=== PATIENT | male | born 1980 | race Two or more races ===

== ENCOUNTER 2022-08-07 23:07 | Inpatient (IN) | payer MEDICAID, OTHER ==
[~2022-08-07] VITALS: Ht 160 cm; Wt 86.2 kg
--- NOTE | 2022-08-07 23:20 | NUR ---
LELO 81 FROM HOME FOR C/O ABD PAIN MORE ON UPPER ABDOMINAL QUADRANT SCALE OF 10/10. N/V X 1 HOUR. PATIENT IS MOANING AND CRYING OF PAIN. PLACED COMFORTABLY IN BED. VITALS CHECKED.
--- NOTE | 2022-08-07 23:20 | NUR ---
BLOOD DRAWN AND SENT TO LAB
[2022-08-07] MEDS ORDERED: MORPHINE SULFATE INJ 2 MG/ML DISP.SYRIN IV ONE (23:30)
[2022-08-07] MEDS ORDERED: IV NS 0.9% 1,000 ML BAG IV ONE (23:30)
[2022-08-07] MEDS ORDERED: ONDANSETRON HCL/PF 4 MG/2 ML VIAL IVP ONE (23:30)
[2022-08-07] MEDS ORDERED: MORPHINE SULFATE INJ 4 MG/ML DISP.SYRIN ONE (23:38)
[2022-08-07] MEDS ORDERED: ONDANSETRON HCL/PF 4 MG/2 ML VIAL ONE (23:38)
--- NOTE | 2022-08-08 00:02 | NUR ---
PT TO CT VIA OLLIE
--- NOTE | 2022-08-08 00:22 | NUR ---
CAME BACK FROM CT DEPT
--- NOTE | 2022-08-08 00:32 | NUR ---
[facility] [phone]. UPDATE GIVEN. TO CALL ONCE RESULTS ARE OUT
--- NOTE | 2022-08-08 00:35 | NUR ---
URINE SPECIMEN SENT TO LAB
[2022-08-08] MEDS ORDERED: KETOROLAC TROMETHAMINE INJ 30 MG/ML VIAL ONE ×2 (00:59→05:00)
[2022-08-08] MEDS ORDERED: KETOROLAC TROMETHAMINE INJ 30 MG/ML VIAL IV ONE ×2 (01:00→05:00)
[2022-08-08 01:33] LABS: BILIRUBIN,URINE NEGATIVE (NEGATIVE); COLOR,URINE OTHER (YELLOW); LEUKOCYTE ESTERASE ,URINE NEGATIVE (NEGATIVE); NITRITE, URINE NEGATIVE (NEGATIVE); PROTEIN,URINE NEGATIVE (NEGATIVE); UGLUCOSE NEGATIVE (NEGATIVE); UROBILINOGEN,URINE 0.2 EU/dL (0.2)
[2022-08-08 01:36] LABS: BASOPHILS # (AUTO) 0.1 K/uL (0.0-0.2); BASOPHILS % (AUTO) 0.4 % (0.0-2.0); EOSINOPHILS % (AUTO) 1.2 % (0.0-6.0); HEMATOCRIT 53 % (39-51); HEMOGLOBIN 17.7 g/dL (13.5-17.5); LYMPHOCYTES # (AUTO) 3.3 K/uL (0.8-4.8); LYMPHOCYTES % (AUTO) 16.5 % (20.0-44.0); MEAN CORPUSCULAR HGB CONC 34 g/dl (31.0-36.0); MEAN CORPUSCULAR VOLUME 86 fL (80-96); MONOCYTES # (AUTO) 1.4 K/uL (0.1-1.30); NEUTROPHILS # (AUTO) 14.8 K/uL (1.8-8.9); NEUTROPHILS % (AUTO) 74.9 % (43.0-81.0); PLATELET COUNT (AUTO) 133 K/uL (150-450); WHITE BLOOD COUNT (AUTO) 19.8 K/uL (4.3-11.0)
[2022-08-08 01:55] LABS: CALCIUM, SERUM 9.2 mg/dL (8.5-10.1); CARBON DIOXIDE 25 mmol/L (21-32); CHLORIDE 105 mmol/L (98-107); CREATININE 0.8 mg/dL (0.6-1.3); GLUCOSE 155 mg/dL (74-106); POTASSIUM 3.7 mmol/L (3.5-5.1); SODIUM SERUM 139 mmol/L (136-145); UREA NITROGEN, BLOOD 15 mg/dL (7-18)
[2022-08-08 02:09] LABS: ALANINE AMINOTRANSFERASE 36 U/L (12-78); ALKALINE PHOSPHATASE 64 U/L (46-116); ASPARTATE AMINOTRANSFERASE 26 U/L (15-37); BILIRUBIN,TOTAL 0.5 mg/dL (0.2-1.0)
[2022-08-08] MEDS ORDERED: PIPERACILLIN /TAZOBACTAM 3.375 G in IV D5W 50 ML IV ONE (02:30)
[2022-08-08 02:33] LABS: BILIRUBIN,DIRECT 0.1 mg/dL (0.0-0.2); LIPASE 8703 U/L (73-393)
--- NOTE | 2022-08-08 02:37 | NUR ---
COVID SWAB COLLECTED AND SENT TO LAB.
--- NOTE | 2022-08-08 02:47 | NUR ---
updates given to
[2022-08-08] MEDS ORDERED: PIPERACILLIN /TAZOBACTAM 3.375 G VIAL IV ONE (02:55)
[2022-08-08] MEDS ORDERED: MORPHINE SULFATE INJ 4 MG/ML DISP.SYRIN ONE ×2 (03:08→05:03)
[2022-08-08] MEDS ORDERED: MORPHINE SULFATE INJ 2 MG/ML DISP.SYRIN IV ONE ×2 (03:30→05:30)
--- NOTE | 2022-08-08 03:32 | NUR ---
REPORT GIVEN TO MARCUS RUTHERFORD
--- NOTE | 2022-08-08 03:51 | NUR ---
MOSES ZUÑIGA AT BEDSIDE
--- NOTE | 2022-08-08 05:04 | NUR ---
SPOKE TO MARCUS MUNGUIA, NO BEDS AT NADA OR [facility] UNTIL [phone]. THEY WILL CALL US BACK LATER FOR UPDATE.
[2022-08-08] MEDS ORDERED: HYDROMORPHONE 1 MG/1 ML DISP.SYRIN ONE ×3 (06:30→10:39)
[2022-08-08] MEDS ORDERED: HYDROMORPHONE 1 MG/1 ML DISP.SYRIN IV ONE ×3 (06:30→11:00)
[2022-08-08] MEDS ORDERED: IV NS 0.9% 1,000 ML IV ONE (06:30)
--- NOTE | 2022-08-08 07:15 | NUR ---
REPORT GIVEN TO STEFANIA RIZO
--- NOTE | 2022-08-08 07:40 | NUR ---
PT RESTING COMFORTABLY IN BED, ALL NEEDS MET AT THIS TIME.
--- NOTE | 2022-08-08 08:05 | NUR ---
ASK FOR CM TO CALL US BACK.
--- NOTE | 2022-08-08 08:27 | NUR ---
DR. RICE SPEAKING WITH DR. SAEZ.
--- NOTE | 2022-08-08 11:32 | NUR ---
BED GIVEN 315-1
--- NOTE | 2022-08-08 11:52 | NUR ---
report given to jc hernandez.
[2022-08-08] MEDS ORDERED: ONDANSETRON HCL/PF 4 MG/2 ML VIAL IV PRN (12:00)
[2022-08-08] MEDS ORDERED: ZOLPIDEM TARTRATE 5 MG TABLET PO PRN (12:00)
[2022-08-08] MEDS ORDERED: ACETAMINOPHEN 650 MG/20.3 ML UDC NG PRN (12:00)
--- NOTE | 2022-08-08 13:00 | NUR ---
RN ADMITTING NOTES RECEIVED PATIENT VIA [facility]IE A/Celine, ACCOMPANIED BY TWO ER STAFF, ON ROOM AIR NO S/S OF RESPIRATORY DISTRESS. IV ACCESS LAC #18G INTACT AND PATENT. ORIENTED TO UNIT AND STAFF. REFUSED FULL SKIN ASSESSMENT. SAFETY MEASURES IN PLACE: BED LOCKED AND IN LOWEST POSITION, HOB ELEVATED, CALL LIGHT WITHIN REACH, SIDE RAILS UPx2. WILL CONTINUE TO MONITOR.
[2022-08-08] MEDS ORDERED: AMLO1CAP PO (13:21)
[2022-08-08 13:41] VITALS: BP 175/113
[2022-08-08] MEDS: HYDROMORPHONE 1 MG/1 ML DISP.SYRIN IV PRN ×2 (13:53→17:33)
[2022-08-08 15:20] VITALS: BP 178/127
[2022-08-08] MEDS: CLONIDINE HCL 0.1 MG TABLET PO PRN (17:24)
[2022-08-08] MEDS: PIPERACILLIN /TAZOBACTAM 3.375 G in IV D5W 50 ML IV SCH (17:25)
[2022-08-08] MEDS: IV D5/ 0.9% NACL 1,000 ML IV PRN (17:25)
[2022-08-08] MEDS: ENOXAPARIN SODIUM 40 MG/0.4 ML DISP.SYRIN SQ SCH (17:26)
--- NOTE | 2022-08-08 18:48 | NUR ---
RN CLOSING NOTES PATIENT A/Ox4, ON ROOM AIR NO S/S OF RESPIRATORY DISTRESS. PATIENT'S AT BEDSIDE. IV ACCESS LAC #18G INTACT AND RH G. 20 SL. CARRIED OUT ALL NEW ORDERS, ALL MEDS GIVEN, PAIN MEDS GIVEN, PRN CLONIDINE ADMINISTERED FOR THE HIGH BLOOD PRESSURE . KEPT PATIENT CLEAN AND COMFORTABLE. SAFETY MEASURES IN PLACE: BED LOCKED AND IN LOWEST POSITION, HOB ELEVATED, CALL LIGHT WITHIN REACH, SIDE RAILS UPx2. WILL ENDORSED TO NIGHT NOD FOR SARAH.
--- NOTE | 2022-08-08 19:25 | NUR ---
RN opening notes Received Pt from morning nurse. Pt is resting in bed comfortably accompanied by Pt's . Pt is alert and orientedX4. On room air. No SOB. No S/S of distress noted. IV sites R hand# 20 is clean, intact and infusing well D5 ns@ 200 ml/hr. LAC# 18 is clean, intact and SL. safety precautions is maintained. Bed at low position, brakes locked, siderails upX2, hob elevated, bed alarm is on and call light is within reach. will continue to monitor.
[2022-08-08] MEDS: KETOROLAC TROMETHAMINE INJ 30 MG/ML VIAL IV PRN (19:56)
[2022-08-08 20:00] VITALS: BP 161/124
--- NOTE | 2022-08-08 20:04 | NUR ---
RN notes Pt is complaining of abd pain and requesting pain med. administered toradol/INJ as ordered for pain. Safety precautions is maintained. Called Pharmacy regarding toradol INJ. Pharmacist ordered to give IM injection. Order carried out.
--- NOTE | 2022-08-08 21:42 | NUR ---
RN notes Informed and notify Dr. Mann regarding Pt's BP at 1999 was 187/120. at 2099 was 161/124. No new orders received. will continue to monitor.
[2022-08-08 22:49] VITALS: BP 153/78
--- NOTE | 2022-08-08 22:50 | NUR ---
RN notes Pt's BP 153/115. no S/S of distress noted. will continue to monitor.
[2022-08-08 22:51] VITALS: BP 153/115
[2022-08-09] MEDS: PIPERACILLIN /TAZOBACTAM 3.375 G in IV D5W 50 ML IV SCH ×4 (00:01→17:51)
[2022-08-09] MEDS: IV D5/ 0.9% NACL 1,000 ML IV PRN ×3 (00:02→17:51)
[2022-08-09] MEDS: HYDROMORPHONE 1 MG/1 ML DISP.SYRIN IV PRN (00:28)
--- NOTE | 2022-08-09 00:35 | NUR ---
RN notes Pt is complaining of abdominal pain 10/10 on pain scale. Administered dilaudid/iv as ordered for pain. safety precautions is maintained. will continue to monitor.
[2022-08-09] MEDS: KETOROLAC TROMETHAMINE INJ 30 MG/ML VIAL IV PRN ×2 (05:23→15:59)
--- NOTE | 2022-08-09 06:43 | NUR ---
RN closing notes Pt is resting in bed comfortably accompanied by Pt's at the bedside. Pt alert and orientedX1-2. on room air. no SOB. No S/S of distress noted. Pt is [place] and able to make needs known. IV site at L hand# 20 is clean, intact and infusing well NS@ 75 ml/hr. IV site at RFA# 22 is clean, intact and SL. haywood cath is inplaced and draining clear yellow urine . R leg immobilizer and dressing is clean, intact and dry. L leg wound care provided as ordered. safety precautions is maintained. Bed at low position, brakes locked, side rails upX3, hob elevated, bed alarm is on and call light is within reach. Will endorse to am nurse for SARAH. Addendum: 08/09/22 at 0645 by JALYN SHEIKH RN Wrong Pt. ignore the message.
--- NOTE | 2022-08-09 06:44 | NUR ---
RN closing notes Pt is resting in bed comfortably. Pt is alert and orientedX4. On room air. No SOB. No S/S of distress noted. NPO. IV sites R hand# 20 is clean, intact and infusing well D5 ns@ 200 ml/hr. LAC# 18 is clean, intact and SL. Routine meds were given as ordered including pain management. Kept Pt clean, dry and comfortbale. All needs met and attended. safety precautions is maintained. Bed at low position, brakes locked, siderails upX2, hob elevated, bed alarm is on and call light is within reach. will endorse to am nurse for SARAH.
[2022-08-09 06:47] LABS: BASOPHILS % (AUTO) 0.1 % (0.0-2.0); EOSINOPHILS % (AUTO) 0.1 % (0.0-6.0); HEMATOCRIT 47 % (39-51); HEMOGLOBIN 15.8 g/dL (13.5-17.5); LYMPHOCYTES % (AUTO) 5.9 % (20.0-44.0); MEAN CORPUSCULAR HGB CONC 34 g/dl (31.0-36.0); MEAN CORPUSCULAR VOLUME 86 fL (80-96); MONOCYTES # (AUTO) 1.3 K/uL (0.1-1.30); NEUTROPHILS # (AUTO) 14.3 K/uL (1.8-8.9); NEUTROPHILS % (AUTO) 85.9 % (43.0-81.0); PLATELET COUNT (AUTO) 98 K/uL (150-450); RED BLOOD CELL COUNT(AUTO) 5.42 MIL/uL (4.5-6.0); WHITE BLOOD COUNT (AUTO) 16.6 K/uL (4.3-11.0)
[2022-08-09 07:00] VITALS: BP 164/108
[2022-08-09 07:20] LABS: ALBUMIN 3.2 g/dL (3.4-5.0); BILIRUBIN,TOTAL 1.5 mg/dL (0.2-1.0); CALCIUM, SERUM 8.2 mg/dL (8.5-10.1); CREATININE 0.9 mg/dL (0.6-1.3); POTASSIUM 3.4 mmol/L (3.5-5.1)
--- NOTE | 2022-08-09 07:45 | NUR ---
RN OPENING NOTES RECEIVED PATIENT AWAKE , A/Ox4 , ON ROOM AIR NO SOB OR DISTRESS NOTED . IV ACCESS LAC #18G INTACT AND PATENT AND RIGHT HAND #20 WITH D5 1/2 NS @200 ML /HOUR . NO C/O OF PAIN AND DISCOMFORT . AMBULATORY WITH BRP . SAFETY MEASURES IN PLACE: BED LOCKED AND IN LOWEST POSITION, HOB ELEVATED, CALL LIGHT WITHIN REACH, SIDE RAILS UPx2. WILL CONTINUE TO MONITOR.
[2022-08-09] MEDS ORDERED: POTASSIUM CHLORIDE 20 MEQ TAB.PRT.SR PO ONE (09:00)
[2022-08-09] MEDS: POTASSIUM CL. PREMIX PERIPHER. 50 ML IV SCH ×2 (09:36→11:07)
[2022-08-09] MEDS ORDERED: POTASSIUM CHLORIDE 10 MEQ/50 ML PREMIXED IVPB FOR PERIPHERAL LINE IV ONE (10:00)
--- NOTE | 2022-08-09 13:00 | NUR ---
RN NOTES PATIENT REFUSED THE TORADOL MEDS RIGHT NOW
[2022-08-09] MEDS: ENOXAPARIN SODIUM 40 MG/0.4 ML DISP.SYRIN SQ SCH (14:01)
--- NOTE | 2022-08-09 15:30 | NUR ---
RN NOTES MEDS TORADOL WAS WASTED
[2022-08-09 15:42] LABS: LYMPHOCYTES % (MANUAL) 5 % (16-48); MONOCYTES % (MANUAL) 10 % (0-11.0); NEUTROPHILS % (MANUAL) 85 (42-76)
[2022-08-09] MEDS: CLONIDINE HCL 0.1 MG TABLET PO PRN ×2 (15:48→21:57)
[2022-08-09 16:00] VITALS: BP 188/104
--- NOTE | 2022-08-09 18:44 | NUR ---
RN OPENING NOTES RECEIVED PATIENT AWAKE , A/Ox4 , ON ROOM AIR NO SOB OR DISTRESS NOTED . IV ACCESS LAC #18G INTACT AND PATENT AND RIGHT HAND #20 WITH D5 NS @200 ML /HOUR . C/O OF PAIN AND DISCOMFORT AND TORADOL GIVEN ORDERED AND WITH HELP . AMBULATORY WITH BRP . ALL DUE MEDS GIVEN ORDERED , NPO EXCEPT MEDS WITH SIPS OF WATER ORDERED , NOTED WITH HIGH BP AND CLONIDINE GIVEN ORDERED , SAFETY MEASURES IN PLACE: BED LOCKED AND IN LOWEST POSITION, HOB ELEVATED, CALL LIGHT WITHIN REACH, SIDE RAILS UPx2. ENDORSED TO NEXT SHIFT Addendum: 08/10/22 at 0833 by MARIANELA HERBERT RN DISREGARD THIS NOTES
[2022-08-09 20:00] VITALS: BP 167/96
[2022-08-09 21:57] VITALS: BP 167/107
--- NOTE | 2022-08-09 22:04 | NUR ---
ABDOMEN PAIN Patient in bed, elevated BP 167/107, reports abdomen pain, denies N/V. No headache, no c/o dizziness. Given Clonidine. IV Toradol. Will cont to monitor patient. Fall precaution maintained.
[2022-08-10] MEDS: PIPERACILLIN /TAZOBACTAM 3.375 G in IV D5W 50 ML IV SCH ×3 (00:05→12:45)
[2022-08-10] MEDS: IV D5/ 0.9% NACL 1,000 ML IV PRN ×2 (00:36→06:53)
[2022-08-10] MEDS: KETOROLAC TROMETHAMINE INJ 30 MG/ML VIAL IV PRN (05:38)
--- NOTE | 2022-08-10 06:25 | NUR ---
END OF SHIFT REPORT Patient in bed, Alert Oriented x4. Oxygen sat high 90's in RA. NPO except medication. IVF continuous, on IV abx. Afebrile during the night. Pain controlled by IV Toradol. Denies N/V. Ambulated to the bathroom, voided urine, no BM during the night. Plan for continue abx/IVF. Fall precaution maintained. Will endorse to oncoming RN.
[2022-08-10 06:57] LABS: BASOPHILS % (AUTO) 0.2 % (0.0-2.0); EOSINOPHILS % (AUTO) 0.1 % (0.0-6.0); HEMATOCRIT 42 % (39-51); LYMPHOCYTES % (AUTO) 7.7 % (20.0-44.0); MEAN CORPUSCULAR HGB CONC 33 g/dl (31.0-36.0); MEAN CORPUSCULAR VOLUME 90 fL (80-96); MONOCYTES # (AUTO) 1.3 K/uL (0.1-1.30); MONOCYTES % (AUTO) 9.9 % (2.0-12.0); NEUTROPHILS # (AUTO) 10.7 K/uL (1.8-8.9); NEUTROPHILS % (AUTO) 82.1 % (43.0-81.0); PLATELET COUNT (AUTO) 77 K/uL (150-450); RED BLOOD CELL COUNT(AUTO) 4.71 MIL/uL (4.5-6.0)
[2022-08-10 07:17] LABS: ALBUMIN 2.8 g/dL (3.4-5.0); BILIRUBIN,TOTAL 1.8 mg/dL (0.2-1.0); CREATININE 0.8 mg/dL (0.6-1.3); MAGNESIUM 1.8 mg/dL (1.8-2.4); POTASSIUM 3.6 mmol/L (3.5-5.1); TOTAL PROTEIN, SERUM 5.7 g/dL (6.4-8.2)
--- NOTE | 2022-08-10 07:26 | NUR ---
LATE ENTRY PAIN REASSESSMENT Pain level 4/10 after IV Toradol. Patient reports abdomen pain much better after IV Toradol. IV Toradol given to patient at 2204 (08/09/22), given and administered IV for abdomen pain 10/07. Missed save administration, computer scanner malfunction.
--- NOTE | 2022-08-10 07:35 | NUR ---
RN OPENING NOTES RECEIVED PATIENT AWAKE , A/Ox4 , ON ROOM AIR NO SOB OR DISTRESS NOTED . IV ACCESS LAC #18G INTACT AND PATENT AND RIGHT FOREARM #20 WITH D5 NS @200 ML /HOUR . NO C/O OF PAIN AND DISCOMFORT . AMBULATORY WITH BRP . SAFETY MEASURES IN PLACE: BED LOCKED AND IN LOWEST POSITION, HOB ELEVATED, CALL LIGHT WITHIN REACH, SIDE RAILS UPx2. WILL CONTINUE TO MONITOR
[2022-08-10 08:00] VITALS: BP 152/99
[2022-08-10 10:34] LABS: LYMPHOCYTES % (MANUAL) 9 % (16-48); MONOCYTES % (MANUAL) 7 % (0-11.0); NEUTROPHILS % (MANUAL) 84 (42-76)
[2022-08-10] MEDS: ENOXAPARIN SODIUM 40 MG/0.4 ML DISP.SYRIN SQ SCH (15:10)
[2022-08-10] MEDS: CLONIDINE HCL 0.1 MG TABLET PO PRN (15:57)
[2022-08-10 16:00] VITALS: BP 169/100
[2022-08-10] MEDS ORDERED: LACTULOSE 10 G/15 ML UDC (PYXIS) PO ONE (17:00)
--- NOTE | 2022-08-10 17:00 | NUR ---
RN NOTES PATIENT C/O THAT HE IS CONSTIPATED AND BLOATED , DR PALOMO MADE AWARE AND WITH ORDER TO GIVE LACTULOSE 20 G PO X 1 AND HE SAID HE CAN GO HOME AFTER DINNER , ORDER NOTED AND CARRIED OUT
--- NOTE | 2022-08-10 18:19 | NUR ---
FINE GRADER NOTES PATIENT WAS SEEN BY MD AND WITH ORDER FOR DISCHARGE , DISCHARGE PAPERS WAS PREPARED AND DISCHARGED INSTRUCTIONS PROVIDED REGARDING MEDICATIONS ,SAFETY, FOLLOW UP WITH PCP, AND WHEN TO CALL 911 IN CASE OF EMERGENCY . ALL BELONGINGS WERE TAKEN AND FORM WAS SIGNED , IV ACCESS AND ID BAND REMOVED , SKIN IS INTACT AND NO SKIN BREAKDOWN NOTED , CONTINENT WITH BOWEL AND BLADDER , NO C/O OF PAIN AND DISCOMFORT AND NO SOB OR DISTRESS NOTED , PATIENT LEFT IN A STABLE CONDITION , PROVIDED TRANSPORTATION WITH THE FAMILY
== END 2022-08-10 17:52 | disposition home or self-care (01) | DRG 282 ==
LOC: ER 23:09 → MED 08-08 11:34
PROVIDERS: ADMIT Internal Medicine; ATTEND Internal Medicine
DX: K85.20 Alcohol induced acute pancreatitis without necrosis or infection (principal); R65.10 Systemic inflammatory response syndrome (SIRS) of non-infectious origin without acute organ dysfunction; I10 Essential (primary) hypertension; Z20.822 Contact with and (suspected) exposure to COVID-19; K82.8 Other specified diseases of gallbladder; Y90.9 Presence of alcohol in blood, level not specified
CPT/HCPCS: 36415; 71045-TC; 76705-TC; 80048-TC; 80053-TC; 80061-TC; 80076-TC; 83690-TC; 83735-TC; 84484-TC; 85025-TC; 85730-TC; 87081-TC; C9803; G0378; J1170; J1650; J1885; J2270; J2405; J2543; J3480; J7030; J7040; J7042; J7060

== ENCOUNTER 2022-08-14 22:32 | Emergency (ER) | payer MEDICAID ==
[~2022-08-14] VITALS: Ht 160 cm; Wt 77.1 kg
[~2022-08-14 22:32] MED LIST: AMLO1CAP PO
--- NOTE | 2022-08-14 23:57 | NUR ---
URINE COLLECTED AND SENT TO LAB
--- NOTE | 2022-08-15 | NUR ---
Pt is noted alert, responsive as he came from home C/O Lower Abdominal Pain with Nausea and took pain but no Relief as pt has history off Panreatitis. Pt care continue as awaits MD orders.
--- NOTE | 2022-08-15 01:10 | NUR ---
Blood Drawn and sent to LAB
[2022-08-15 01:29] LABS: CALCIUM, SERUM 8.5 mg/dL (8.5-10.1); CREATININE 0.7 mg/dL (0.6-1.3); POTASSIUM 3.3 mmol/L (3.5-5.1)
[2022-08-15 01:31] LABS: BILIRUBIN,URINE 2+ (NEGATIVE); COLOR,URINE YELLOW (YELLOW); LEUKOCYTE ESTERASE ,URINE NEGATIVE (NEGATIVE); NITRITE, URINE NEGATIVE (NEGATIVE); PH,URINE 6.5 (5.0-8.0); PROTEIN,URINE 1+ mg/dl (NEGATIVE); UGLUCOSE TRACE mg/dL (NEGATIVE); UROBILINOGEN,URINE >=8.0 EU/dL (0.2)
[2022-08-15 01:32] LABS: BASOPHILS % (AUTO) 0.2 % (0.0-2.0); EOSINOPHILS % (AUTO) 1.4 % (0.0-6.0); HEMATOCRIT 41 % (39-51); LYMPHOCYTES # (AUTO) 1.8 K/uL (0.8-4.8); LYMPHOCYTES % (AUTO) 13.5 % (20.0-44.0); MEAN CORPUSCULAR HGB CONC 34 g/dl (31.0-36.0); MEAN CORPUSCULAR VOLUME 86 fL (80-96); MONOCYTES # (AUTO) 1.8 K/uL (0.1-1.30); MONOCYTES % (AUTO) 13.1 % (2.0-12.0); NEUTROPHILS # (AUTO) 9.7 K/uL (1.8-8.9); NEUTROPHILS % (AUTO) 71.8 % (43.0-81.0); PLATELET COUNT (AUTO) 177 K/uL (150-450); RED BLOOD CELL COUNT(AUTO) 4.82 MIL/uL (4.5-6.0); WHITE BLOOD COUNT (AUTO) 13.4 K/uL (4.3-11.0)
[2022-08-15 01:35] LABS: ALBUMIN 2.9 g/dL (3.4-5.0); BILIRUBIN,DIRECT 0.3 mg/dL (0.0-0.2); BILIRUBIN,TOTAL 0.8 mg/dL (0.2-1.0); TOTAL PROTEIN, SERUM 6.6 g/dL (6.4-8.2)
[2022-08-15 01:41] LABS: RBC,URINE 0-2 /HPF (0-2); WBC,URINE NONE SEEN /HPF (0-3)
[2022-08-15 01:43] LABS: BACTERIA,URINE Few /HPF (None Seen)
[2022-08-15 01:44] LABS: SQUAMOUS EPITHELIAL CELL,UR Few /HPF (None Seen)
--- NOTE | 2022-08-15 03:07 | NUR ---
Pt is been discharge to home with all discharge instructions given .
[2022-08-15 03:10] VITALS: BP 152/91
== END 2022-08-15 03:11 | disposition home or self-care (01) ==
LOC: ER 22:35
DX: K59.00 Constipation, unspecified (principal); R10.30 Lower abdominal pain, unspecified; I10 Essential (primary) hypertension; F17.200 Nicotine dependence, unspecified, uncomplicated; Z79.899 Other long term (current) drug therapy
CPT/HCPCS: 36415; 80048-TC; 80076-TC; 81001; 83690-TC; 85025-TC

== ENCOUNTER 2024-05-06 13:05 | Emergency (ER) | payer MEDICAID, OTHER ==
[~2024-05-06] VITALS: Ht 172.7 cm; Wt 77.1 kg
[2024-05-06 13:31] VITALS: TEMP 98.2
[2024-05-06 14:22] LABS: BASOPHILS % (AUTO) 0.3 % (0.0-2.0); EOSINOPHILS # (AUTO) 0.1 K/uL (0.0-0.7); HEMATOCRIT 49 % (39-51); HEMOGLOBIN 17.7 g/dL (13.5-17.5); LYMPHOCYTES # (AUTO) 1.6 K/uL (0.8-4.8); LYMPHOCYTES % (AUTO) 16.6 % (20.0-44.0); MEAN CORPUSCULAR HEMOGLOBIN 30 PG (26.0-33.0); MEAN CORPUSCULAR HGB CONC 36 g/dl (31.0-36.0); MEAN CORPUSCULAR VOLUME 83 fL (80-96); MONOCYTES # (AUTO) 0.6 K/uL (0.1-1.30); MONOCYTES % (AUTO) 5.8 % (2.0-12.0); NEUTROPHILS # (AUTO) 7.3 K/uL (1.8-8.9); NEUTROPHILS % (AUTO) 76.3 % (43.0-81.0); PLATELET COUNT (AUTO) 114 K/uL (150-450); RED BLOOD CELL COUNT(AUTO) 5.97 MIL/uL (4.5-6.0); RED CELL DISTRIBUTION WIDTH 12.8 % (11.5-15.0); WHITE BLOOD COUNT (AUTO) 9.6 K/uL (4.3-11.0)
[2024-05-06 14:53] LABS: ALBUMIN 4.1 g/dL (3.4-5.0); BILIRUBIN,DIRECT 0.2 mg/dL (0.0-0.2); BILIRUBIN,TOTAL 0.8 mg/dL (0.2-1.0); CREATININE 0.8 mg/dL (0.6-1.3); POTASSIUM 4.1 mmol/L (3.5-5.1); TOTAL PROTEIN, SERUM 7.6 g/dL (6.4-8.2)
[2024-05-06] MEDS ORDERED: ONDANSETRON HCL/PF 4 MG/2 ML VIAL ONE (15:12)
[2024-05-06] MEDS ORDERED: MORPHINE SULFATE INJ 2 MG/ML DISP.SYRIN ONE (15:13)
[2024-05-06] MEDS ORDERED: IOHEXOL-300 100 ML VIAL IV ONE (15:17)
[2024-05-06] MEDS ORDERED: IV NS 0.9% 250 ML IV ONE (15:17)
[2024-05-06] MEDS: ONDANSETRON HCL/PF - ER 4 MG/2 ML VIAL IV ONE (15:24)
[2024-05-06] MEDS: MORPHINE SULFATE INJ 2 MG/ML DISP.SYRIN IV ONE (15:27)
[2024-05-06] MEDS ORDERED: hydrALAZINE HCL IV 20 MG VIAL ONE (15:59)
[2024-05-06] MEDS: hydrALAZINE HCL IV 20 MG VIAL IV ONE (16:07)
[2024-05-06] MEDS ORDERED: METF-440 PO (18:38)
[2024-05-06 19:08] VITALS: BP 154/98; O2SAT 99
== END 2024-05-06 19:08 | disposition home or self-care (01) ==
LOC: ER 13:07
DX: K85.90 Acute pancreatitis without necrosis or infection, unspecified (principal); R73.9 Hyperglycemia, unspecified; I82.890 Acute embolism and thrombosis of other specified veins; I10 Essential (primary) hypertension; F17.200 Nicotine dependence, unspecified, uncomplicated; Z87.19 Personal history of other diseases of the digestive system
CPT/HCPCS: 36415; 80048-TC; 80076-TC; 83690-TC; 84484-TC; 85025-TC; J0360; J2270; J2405; J7050; Q9967